=== PATIENT | male | born 1980 | race Caucasian/White ===

== ENCOUNTER 2020-06-17 06:27 | Emergency (ER) | payer BC, MEDICAID ==
--- NOTE | 2020-06-17 07:17 | EDM.PDOC ---
ED HPI GENERAL MEDICAL PROBLEM - General Chief Complaint: Gastrointestinal Problem Stated Complaint: DIZZINESS, VOMITING AND LT SHOULDER PAIN Time Seen by Provider: 06/17/20 06:58 - History of Present Illness INITIAL COMMENTS - FREE TEXT/NARRATIVE: 39-year-old male with a history of hypertension and hyperlipidemia is presenting with severe vertigo nausea vomiting and left-sided neck pain radiating down to into his chest. The patient states symptoms started this morning after he got to work. He had recently had a peanut butter cookie but he has no known allergy to peanut butter. He initially developed a sensation of rapid room spinning followed rapidly by vomiting and a burning in his throat and chest. No shortness of breath some lightheadedness his primary overriding symptom is spinning and lack of equilibrium. No fevers no chills no cough he was in his normal state of health until the symptoms started this morning. If he closes his eyes puts his head down remain still his symptoms improved but do not resolve they worsen with any head motion. No radiation or other associated symptoms. chest Pain Score (Numeric/FACES): 5 - Related Data Allergies Allergy/AdvReac Type Severity Reaction Status Date / Time bee venom protein (honey bee) Allergy Swelling Verified 06/17/20 06:38 Home Meds: Home Meds Sertraline HCl [Zoloft] 100 mg PO DAILY 05/24/18 [History] HCTZ/Triamterene [Dyazide 25-37.5 MG] cap PO DAILY 06/17/20 [History] Meclizine [Antivert] 25 mg PO TID PRN #21 tab 06/17/20 [Rx] Ondansetron [Zofran ODT] 4 mg PO TID PRN 7 Days #21 tab.dis 06/17/20 [Rx] amLODIPine [Norvasc] mg PO DAILY 06/17/20 [History] atorvaSTATin [Lipitor] mg PO DAILY 06/17/20 [History] Past Medical History - Past Health History Medical/Surgical History: Denies Medical/Surgical History Cardiovascular History: Reports: High Cholesterol, Hypertension Psychiatric History: Reports: Anxiety, Depression - Infectious Disease History Infectious Disease History: Reports: Chicken Pox Social & Family History - Family History Family Medical History: No Pertinent Family History - Tobacco Use Tobacco Use Status *Q: Former Tobacco User Used Tobacco, but Quit: Yes Month/Year Tobacco Last Used: 2017 - Caffeine Use Caffeine Use: Reports: Coffee - Recreational Drug Use Recreational Drug Use: No ED ROS GENERAL - Review of Systems Review Of Systems: See Below Free Text/Narrative/Comment: General: No fever. Skin: No rash. Eyes: No vision problems. ENT: No sore throat. Neck: Per HPI Respiratory: No shortness of breath. Cardiac: Per HPI Gastrointestinal: No nausea, vomiting or abdominal pain. Musculoskeletal: No myalgias/arthralgias. Neurologic: Per HPI ED EXAM, GENERAL - Physical Exam Exam: See Below Free Text/Narrative:: General Appearance: No acute distress, appears comfortable Skin: No rash HEENT: Normocephalic/atraumatic, sclera anicteric, mucous membranes moist Neck: Normal range of motion Chest and Lungs: Bilateral breath sounds, clear to auscultation Cardiovascular: Regular rate and rhythm, no murmur Abdomen: Soft, non-tender Back: Normal Musculoskeletal: No edema or tenderness Neurologic: Awake, alert, 5-5 strength in the upper or lower extremities leftward beating nystagmus that worsens with left gaze unable to tolerate head impulse testing Psychiatric: Appropriate, cooperative #1 Interpretation EKG Date: 06/17/20 Time: 06:35 EKG Interpretation Comments: Sinus tachycardia with a rate of 101 normal axis and intervals no acute ischemia Course - Vital Signs Last Recorded V/S: Last Vital Signs Temp 96.8 F L 06/17/20 06:39 Pulse 78 06/17/20 08:34 Resp 17 06/17/20 08:34 BP 121/83 06/17/20 08:34 Pulse Ox 97 06/17/20 08:34 - Orders/Labs/Meds Orders: Active Orders 24 hr Category Date Time Status EKG Documentation Completion [RC] STAT Care 06/17/20 07:35 Active Sodium Chloride 0.9% [Saline Flush] Med 06/17/20 07:08 Active 10 ml FLUSH ASDIRECTED PRN Sodium Chloride 0.9% [Saline Flush] Med 06/17/20 07:08 Active 2.5 ml FLUSH ASDIRECTED PRN Saline Lock Insert [OM.PC] Stat Oth 06/17/20 07:08 Ordered Medication Orders Sodium Chloride (Saline Flush) 10 ml FLUSH ASDIRECTED PRN PRN Reason: Keep Vein Open Last Admin: 12/31/20 07:27 Dose: 10 ml Documented by: [id number] Sodium Chloride (Saline Flush) 2.5 ml FLUSH ASDIRECTED PRN PRN Reason: Keep Vein Open Last Admin: 06/17/20 07:27 Dose: 2.5 ml Documented by: [id number] Labs: Laboratory Tests 06/17/20 06/17/20 Range/Units 06:35 06:35 WBC 13.58 H (4.0-11.0) K/uL RBC 4.89 (4.50-5.90) M/uL Hgb 14.8 (13.0-17.0) g/dL Hct 43.2 (38.0-50.0) % MCV 88.3 (80.0-98.0) fL MCH 30.3 (27.0-32.0) pg MCHC 34.3 (31.0-37.0) g/dL RDW Std Deviation 40.4 (28.0-62.0) fl RDW Coeff of Christopher 13 (11.0-15.0) % Plt Count 333 (150-400) K/uL MPV 10.90 (7.40-12.00) fL Neut % (Auto) 49.5 (48.0-80.0) % Lymph % (Auto) 41.2 H (16.0-40.0) % [place] % (Auto) 7.8 (0.0-15.0) % Eos % (Auto) 1.4 (0.0-7.0) % Baso % (Auto) 0.1 (0.0-1.5) % Neut # (Auto) 6.7 H (1.4-5.7) K/uL Lymph # (Auto) 5.6 H (0.6-2.4) K/uL [place] # (Auto) 1.1 H (0.0-0.8) K/uL Eos # (Auto) 0.2 (0.0-0.7) K/uL Baso # (Auto) 0.0 (0.0-0.1) K/uL Nucleated RBC % 0.0 /100WBC Nucleated RBCs # 0 K/uL Sodium 136 (136-148) mmol/L Potassium 3.5 (3.5-5.1) mmol/L Chloride 99 (98-107) mmol/L Carbon Dioxide 28.2 (21.0-32.0) mmol/L BUN 19 H (7.0-18.0) mg/dL Creatinine 1.6 H (0.8-1.3) mg/dL Est Cr Clr Drug Dosing 72.07 mL/min Estimated GFR (MDRD) 48.4 ml/min Glucose 145 H (74-106) mg/dL Calcium 9.8 (8.5-10.1) mg/dL Total Bilirubin 0.5 (0.2-1.0) mg/dL AST 17 (15-37) IU/L ALT 33 (14-63) IU/L Alkaline Phosphatase 97 (46-116) U/L Troponin I < 0.050 (0.000-0.056) ng/mL Total Protein 7.9 (6.4-8.2) g/dL Albumin 4.6 (3.4-5.0) g/dL Globulin 3.3 (2.6-4.0) g/dL Albumin/Globulin Ratio 1.4 (0.9-1.6) Lipase 76 (73-393) U/L Meds: Medications Generic Name Dose Route Start Last Admin Trade Name Freq PRN Reason Stop Dose Admin Sodium Chloride 10 ml 06/17/20 07:08 06/17/20 07:27 Saline Flush FLUSH 10 ml ASDIRECTED PRN Administration Keep Vein Open Sodium Chloride 2.5 ml 06/17/20 07:08 06/17/20 07:27 Saline Flush FLUSH 2.5 ml ASDIRECTED PRN Administration Keep Vein Open Discontinued Medications Generic Name Dose Route Start Last Admin Trade Name Freq PRN Reason Stop Dose Admin Iopamidol 100 ml 06/17/20 07:52 06/17/20 08:01 Isovue Multipack-370 (76%) IVPUSH 06/17/20 07:53 100 ml ONETIME STA Administration Lorazepam 1 mg 06/17/20 09:06 06/17/20 09:14 Ativan IVPUSH 06/17/20 09:07 1 mg ONETIME ONE Administration Meclizine HCl 25 mg 06/17/20 07:09 06/17/20 07:27 Antivert PO 06/17/20 07:10 25 mg ONETIME ONE Administration Ondansetron HCl 4 mg 06/17/20 07:08 06/17/20 07:27 Zofran IVPUSH 06/17/20 07:09 4 mg ONETIME ONE Administration Departure - Departure Time of Disposition: Disposition: Home, Self-Care 01 Condition: Good Clinical Impression: Peripheral vertigo - Discharge Information *PRESCRIPTION DRUG MONITORING PROGRAM REVIEWED*: Not Applicable *COPY OF PRESCRIPTION DRUG MONITORING REPORT IN PATIENT VIOLETTE: Not Applicable Prescriptions: Meclizine [Antivert] 25 mg PO TID PRN #21 tab PRN Reason: Dizziness Ondansetron [Zofran ODT] 4 mg PO TID PRN 7 Days #21 tab.dis PRN Reason: Nausea Instructions: Vertigo, [id number] Forms: ED Department Discharge Additional Instructions: Your vertigo was most likely being caused by a problem in your inner ear. The Zofran and meclizine should help suppress your symptoms. Your body should be able to take care of this problem on its own over the next few days. If you do not improve within the next several days I encourage you to follow-up with your primary care doctor. If your symptoms worsen or you develop any other new symptoms that concern you I encourage you to call your doctor right away or return to the ER. The following information is given to patients seen in the emergency department who are being discharged to home. This information is to outline your options for follow-up care. We provide all patients seen in our emergency department with a follow-up referral. The need for follow-up, as well as the timing and circumstances, are variable depending upon the specifics of your emergency department visit. If you don't have a primary care physician on staff, we will provide you with a referral. We always advise you to contact your personal physician following an emergency department visit to inform them of the circumstance of the visit and for follow-up with them and/or the need for any referrals to a consulting specialist. The emergency department will also refer you to a specialist when appropriate. This referral assures that you have the opportunity for follow-up care with a specialist. All of these measure are taken in an effort to provide you with optimal care, which includes your follow-up. Under all circumstances we always encourage you to contact your private physician who remains a resource for coordinating your care. When calling for follow-up care, please make the office aware that this follow-up is from your recent emergency room visit. If for any reason you are refused follow-up, please contact the [facility] Emergency Department at and asked to speak to the emergency department charge nurse. Sepsis Event Note (ED) - Evaluation Sepsis Screening Result: No Definite Risk - Focused Exam Vital Signs: Vital Signs Temp Pulse Resp BP Pulse Ox 06/17/20 08:34 78 17 121/83 97 06/17/20 08:04 80 17 125/93 H 96 06/17/20 07:19 76 18 121/75 97 06/17/20 06:39 96.8 F L 102 H 26 H 144/77 H 100 - My Orders Last 24 Hours: My Active Orders 06/17/20 07:08 Sodium Chloride 0.9% [Saline Flush] 10 ml FLUSH ASDIRECTED PRN Sodium Chloride 0.9% [Saline Flush] 2.5 ml FLUSH ASDIRECTED PRN Saline Lock Insert [OM.PC] Stat 06/17/20 07:35 EKG Documentation Completion [RC] STAT - Assessment/Plan Last 24 Hours: My Active Orders 06/17/20 07:08 Sodium Chloride 0.9% [Saline Flush] 10 ml FLUSH ASDIRECTED PRN Sodium Chloride 0.9% [Saline Flush] 2.5 ml FLUSH ASDIRECTED PRN Saline Lock Insert [OM.PC] Stat 06/17/20 07:35 EKG Documentation Completion [RC] STAT Assessment:: 39-year-old male presenting with signs and symptoms that seem most consistent with peripheral vertigo given their severity and the fact that they improve so much when he shuts his eyes and tilts his head forward. His EKG that was done p rior to my arrival is without any acute ischemic changes and I think ACS is very unlikely. Troponin pending but patient has a low heart score. Zofran and meclizine will be given for symptoms. Given the history of hypertension the left-sided neck pain must consider vertebral artery dissection though I think this is unlikely CT CTA is pending. Absent vertebral artery dissection the patient's young age makes him very low risk for stroke and if CT angio was unremarkable would focus on symptom management and would hope to discharge with improvement but we will continue to reassess. 0930: Patient's imaging is without acutely concerning finding. Patient symptoms have improved with the meclizine and the Ativan he is now able to ambulate well. However, he still has significant symptoms when he lays back. I think at this point BPPV is most likely. Return precautions were discussed and understood prescriptions for Zofran and meclizine have been sent to the pharmacy. Patient encouraged to follow-up with his primary care doctor if symptoms do not resolve over the next few days.
[2020-06-17 07:25] LABS: BLOOD UREA NITROGEN,BUN 19 mg/dL (7.0-18.0); CARBON DIOXIDE,CO2 28.2 mmol/L (21.0-32.0); CHLORIDE,CL 99 mmol/L (98-107); GLUCOSE RANDOM 145 mg/dL (74-106); LIPASE 76 U/L (73-393); POTASSIUM,K 3.5 mmol/L (3.5-5.1); SODIUM,NA 136 mmol/L (136-148)
[2020-06-17] MEDS: Ondansetron 4 MG/2 ML SDV IVPUSH ONE (07:27)
[2020-06-17] MEDS: Meclizine 25 MG Tab PO ONE (07:27)
[2020-06-17] MEDS: Sodium Chloride 0.9% 10 ML Syringe FLUSH PRN (07:27)
[2020-06-17] MEDS: Sodium Chloride 0.9% 2.5 ML Syringe FLUSH PRN (07:27)
[2020-06-17] MEDS: Iopamidol 755 MG/ML 500 ML Multipack Bottle IVPUSH STA (08:01)
--- NOTE | 2020-06-17 08:18 | CR ---
Indication: Left-sided chest pain Technique: Two views of the chest were acquired Comparison: None Findings: Heart size normal. Lungs are clear. There is no pleural effusion or pneumothorax. Impression: Normal plain film examination of the chest Dictated by Navjot Cuello MD @ Jun 17 2020 8:14AM Signed by Dr. Navjot Cuello @ Jun 17 2020 8:16AM
--- NOTE | 2020-06-17 08:29 | CT ---
FINDINGS: Noncontrast CT of the head demonstrates no evidence of hemorrhage. Midline structures are centrally located no evidence of shift. The xavier-white differentiation appears blurred but this may be related to technique. Small amount of air within the epidural space at the C1-C2 junction on the right that may be iatrogenic in nature. Grossly the visualized 1st and 2nd order intracranial vessels appear patent with no convincing evidence of high grade narrowing or prominent aneurysm formation. Please note that all CT scans at this facility use dose modulation, iterative reconstruction, and/or weight-based dosing when appropriate to reduce radiation dose to as low as reasonably achievable. Dictated by Vamsi Daigle MD @ Jun 17 2020 8:26AM Signed by Dr. Vamsi Daigle @ Jun 17 2020 8:28AM
--- NOTE | 2020-06-17 08:33 | CT ---
INDICATION: Left lateral neck pain, vertigo, nausea and vomiting. TECHNIQUE: After standard noncontrast head CT, high resolution axial CT images acquired through the head and neck following rapid intravenous administration of iodinated contrast. Multiplanar MIPS of cranial and cervical vasculature performed. FINDINGS: Noncontrast head CT: There is no intracranial hemorrhage or fluid collection. The xavier-white matter differentiation is maintained. The ventricles are of normal morphology. The basal cisterns are clear. CTA head: There is normal filling of the intracranial vasculature; i.e. there is no large vessel occlusion or intracranial stenosis. There is no cerebral aneurysm or evidence for vascular malformation. There is asymmetric prominence of the right cavernous sinus, which can be an anatomic variant. CTA neck: The carotid and vertebral arteries are of normal course and caliber. There is no stenosis or dissection. A small amount of gas in the epidural space at the C1-2 region is probably related to venous injection. The soft tissues of the neck are within normal limits. The cervical spine is in normal alignment. The lung apices are clear. IMPRESSION: Unremarkable CT head, CTA head and neck. Wayne Birch MD [employer] [facility] Please note that all CT scans at this facility use dose modulation, iterative reconstruction, and/or weight-based dosing when appropriate to reduce radiation dose to as low as reasonably achievable. Dictated by Wayne Birch MD @ Jun 17 2020 9:39AM Signed by Dr. Wayne Birch @ Jun 17 2020 9:45AM
[2020-06-17] MEDS: LORazepam 2 MG/ML SDV IVPUSH ONE (09:14)
== END 2020-06-17 09:46 | disposition home or self-care (01) ==
LOC: MW.ED 06:27
DX: H81.399 Other peripheral vertigo, unspecified ear (principal); I10 Essential (primary) hypertension; E78.00 Pure hypercholesterolemia, unspecified; F41.9 Anxiety disorder, unspecified; F32.9 Major depressive disorder, single episode, unspecified; Z87.891 Personal history of nicotine dependence; Z79.899 Other long term (current) drug therapy; Z91.030 Bee allergy status
CPT/HCPCS: 36415; 70496; 70496-26; 70498; 70498-26; 71046; 71046-26; 80053; 83690; 84484; 85025; 93005; 93010; 96374; 96375; 99283; 99284-25; A9270-GY; J2060; J2405; Q9967

== ENCOUNTER 2021-06-30 00:03 | Emergency (ER) | payer BC, MEDICAID | END 2021-06-30 00:38 | LOC: MW.ED 00:03 | DX: Z02.89 Encounter for other administrative examinations (principal); I10 Essential (primary) hypertension; K21.9 Gastro-esophageal reflux disease without esophagitis; Z91.030 Bee allergy status; Z79.899 Other long term (current) drug therapy | CPT/HCPCS: 99283 ==